=== PATIENT | male | born 1940 | race Caucasian/White ===

== ENCOUNTER 2019-08-20 12:27 | Inpatient (IN) | payer MEDICARE ==
[~2019-08-20] VITALS: Ht 185.4 cm; Wt 95.8 kg
[~2019-08-20 12:27] MED LIST: ANTIVERT 25MG25 MG PO; NAPROSYN; PRILOSEC 20MG20 MG PO; TRAMADOL50 MG PO; VYTORIN
[2019-08-20] MEDS ORDERED: TYLENOL 325MG325 MG PO ×2 (14:35→14:52)
[2019-08-20] MEDS ORDERED: ZOVIRAX400 MG PO (14:36)
[2019-08-20] MEDS ORDERED: ZYLOPRIM 300MG300 MG PO (14:37)
[2019-08-20] MEDS ORDERED: ENTOCORT EC3 MG PO ×2 (14:38→14:58)
[2019-08-20] MEDS ORDERED: ZYRTEC5 MG PO (14:38)
[2019-08-20] MEDS ORDERED: CARDIZEM 30MG T30 MG PO ×2 (14:39→14:55)
[2019-08-20] MEDS ORDERED: ARNUITY IH ×2 (14:40→14:58)
[2019-08-20] MEDS ORDERED: MOTRIN 400400 MG/TAB PO (14:41)
[2019-08-20] MEDS ORDERED: LEVAQUIN 5500 MG/TA1 PO (14:42)
[2019-08-20] MEDS ORDERED: ANTIVERT 25MG25 MG PO (14:44)
[2019-08-20] MEDS ORDERED: PRILOSEC10 MG/Pack PO (14:45)
[2019-08-20] MEDS ORDERED: ZOFRAN INJ4 MG/2 ML IV (14:46)
[2019-08-20] MEDS ORDERED: ZOFRAN8 MG PO ×2 (14:47)
[2019-08-20] MEDS ORDERED: CRESTOR 10MG10 MG PO (14:48)
[2019-08-20] MEDS ORDERED: VENCLEXTA100 MG PO ×2 (14:49→14:56)
[2019-08-20] MEDS ORDERED: ZOSYN 3.373.375 GM/V IV (14:50)
[2019-08-20] MEDS ORDERED: NORMAL SALINE F10 ML IV (14:53)
[2019-08-20] MEDS ORDERED: ATROVENT I0.2 MG/1 M IH (14:53)
[2019-08-20] MEDS ORDERED: PRILOSEC 20MG20 MG PO (14:54)
[2019-08-20] MEDS ORDERED: PROBIOTIC GOLD1 EACH PO (14:57)
[2019-08-20] MEDS ORDERED: VALTREX1 GM PO (14:57)
[2019-08-20] MEDS ORDERED: VANCO 1 GR1 GM/250 M IV (14:59)
[2019-08-20] MEDS ORDERED: LEVAQUIN 7750 MG/151 IV (15:00)
[2019-08-20 16:32] LABS: MEAN CELL VOLUME 106 fl (80.0-100.0); MEAN CORPUSCULAR HGB CONC 31 g/dl (33.0-37.0); PLATELET COUNT 287 K/mm3 (130-400); RED BLOOD COUNT 2.44 M/mm3 (4.20-5.60); REDCELL DISTRIBUTION WIDTH-CV 18.4 % (11.5-14.5)
[2019-08-20 16:37] LABS: HEMATOCRIT 25.9 % (42.0-52.0); HEMOGLOBIN 7.9 g/dl (13.5-18.0); MEAN CORPUSCULAR HEMOGLOBIN 32 pg (27.0-31.0)
[2019-08-20 16:38] VITALS: BP 115/57; PULSE 100; TEMP 98.8
--- NOTE | 2019-08-20 16:42 | NUR ---
PATIENT ARRIVED TO THE UNIT AT 1348 VIA EMS CART. HE WAS ABLE TO WALK FROM THE CART TO THE BED. i ASSISTED HIM TO THE BATHROOM WHERE HE PULLED THE STRING WHEN HE WAS FINISHED GOING. ONCE GETTING BACK IN BED HE RESTED FOR AWHILE. ADMISSION B ASSESSMENT DONE AND COMPLETED AND MEDICATIONS REVIEWED. PATIENT HAS HIS CELLPHONE WHERE HE TALKS TO HIS GRANDDAUGHTER. PATIENT IS A 1 ASSIST BECAUSE HE LOOSES HIS BALANCE OCCASIONALLY. PATIENT IS ON 2L OF O2 AT THIS TIME. UPDATED WBC IS 1.8. NKDA. PATIENT HAS A HISTORY OF AML AND RECEIVING CHEMOTHERAPY SO HE IS ON NEUTROPENIC PRECAUTIONS. LUNG SOUNDS ARE THE RIGHT DO NOT HAVE MUCH AIR FLOW THE LEFT SIDE. PATIENT IS HERE BECAUSE OF A CT DONE TODAY, IT WAS SLIGHT WORSENING ALVEOLAR SPACE OPACITIES WITHIN BOTH LUNGS AND MOSTLY IN RUL. PATIENT HAS BEEN RECEIVING IV ANTIBIOTICS AT THE PREVIOUS FACILITY. PATIENT IS ON A REGULAR DIET WITH Q4 VITALS AND TELEMETERY. PATIENT HAS 2+ PULSES BILATERALLY RADIAL AND PEDIALLY. NO COMPLAINTS AT THIS TIME.
[2019-08-20 16:45] LABS: ALBUMIN 2.7 gm/dL (3.5-5.0); BILIRUBIN,TOTAL 0.7 mg/dL (0.0-1.0); CALCIUM 7.7 mg/dL (8.4-10.2); CREATININE, serum 1.62 (0.66-1.25); POTASSIUM 3.6 mmol/L (3.4-5.0); TOTAL PROTEIN 5.5 gm/dL (6.4-8.2)
[2019-08-20 17:37] VITALS: BP 115/57; PULSE 100; TEMP 98.8
--- NOTE | 2019-08-20 18:02 | NUR ---
PATIENT IS RESTING IN BED AT THIS TIME. NO COMPLAINTS. NO SHORTNESS OF BREATH, NEASUA, VOMITING, OR DIZINESS AT THIS TIME. RESTING OFF AND ON. 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 CALL LIGHT WITHIN REACH AND WATER ON THE BEDSIDE TABLE. WAS ASSISTED TO THE BATHROOM A HALF HOUR AGO BY THE AIDE. PATIENT DENIES ANY NEEDS AT THIS TIME AND INSTRUCTED TO USE CALL LIGHT IF HE NEEDS ANYTHING.
[2019-08-20 20:26] LABS: BAND 12 % (0-10); LYMPHOCYTE 14 % (20.0-51.0); METAMYELOCYTE 4 % (0-0); MYELOCYTE 2 % (0-0); NEUTROPHILS 62 % (42.0-75.2)
[2019-08-20 20:28] LABS: PLATELET ESTIMATE NORMAL (NORMAL)
[2019-08-20 20:29] LABS: ANISOCYTOSIS 2+; TOXIC GRANULATION PRESENT
[2019-08-20 20:30] VITALS: BP 107/57; PULSE 98; TEMP 97.8
--- NOTE | 2019-08-20 20:30 | NUR ---
Shift assessment complete. Patient ambulated to BR with cane and assist x1. Tolerated well. States pain 8/10 in left shoulder (chronic). VIMAL Vega called for prn pain medication. Tylenol and norco ordered. Prn tylenol given per pt request. HR irregular upon auscultation, NSR with PAC's on tele. Murmur noted. Right hand IV flushed and infusing abx. Denies further needs at this time. Will continue to monitor.
[2019-08-21 03:02] VITALS: BP 112/52; PULSE 87; TEMP 98.1
--- NOTE | 2019-08-21 05:21 | NUR ---
Patient in bed, awake. Denies pain. IV flushed with NS and infusing abx. Denies further needs at this time. Will continue to monitor.
[2019-08-21] MEDS ORDERED: CARDIZEM 60MG T60 MG PO (05:27)
[2019-08-21] MEDS ORDERED: FLOVENT DI100 MCG/Ac IH (05:38)
[2019-08-21] MEDS ORDERED: ATROVENT I0.2 MG/1 M IH (05:47)
[2019-08-21] MEDS ORDERED: DIFLUCAN 4400 MG/200 IV (05:51)
--- NOTE | 2019-08-21 06:00 | NUR ---
Med list updated, information taken from [facility] records in paper chart. Notified VIMAL Vega. Will pass on to days that the med list needs to be addressed in rounds.
[2019-08-21 07:24] VITALS: BP 111/51; PULSE 106; TEMP 98.5
[2019-08-21 08:23] LABS: MEAN CELL VOLUME 105 fl (80.0-100.0); MEAN CORPUSCULAR HGB CONC 31 g/dl (33.0-37.0); MEAN PLATELET VOLUME 9.8 fl (7.4-10.4); PLATELET COUNT 279 K/mm3 (130-400); RED BLOOD COUNT 2.62 M/mm3 (4.20-5.60); REDCELL DISTRIBUTION WIDTH-CV 18.2 % (11.5-14.5)
[2019-08-21 08:27] LABS: HEMOGLOBIN 8.5 g/dl (13.5-18.0); MEAN CORPUSCULAR HEMOGLOBIN 32 pg (27.0-31.0)
[2019-08-21 08:28] LABS: HEMATOCRIT 27.5 % (42.0-52.0)
[2019-08-21 08:34] LABS: ALBUMIN 2.9 gm/dL (3.5-5.0); BILIRUBIN,TOTAL 0.7 mg/dL (0.0-1.0); CALCIUM 8.1 mg/dL (8.4-10.2); CREATININE, serum 1.55 (0.66-1.25); MAGNESIUM 2.1 mg/dL (1.6-2.3); POTASSIUM 3.8 mmol/L (3.4-5.0); TOTAL PROTEIN 5.8 gm/dL (6.4-8.2)
[2019-08-21 08:42] LABS: BAND 4 % (0-10); EOSINOPHIL 2 % (0-4); LYMPHOCYTE 16 % (20.0-51.0); METAMYELOCYTE 2 % (0-0); NEUTROPHILS 66 % (42.0-75.2); PLATELET ESTIMATE NORMAL (NORMAL)
[2019-08-21 09:15] LABS: PH 6 (5-8); SQUAMOUS EPITHELIAL None Seen /hpf; URINE APPEARANCE Clear; URINE BACTERIA None Seen /hpf; URINE BILIRUBIN Negative (NEGATIVE); URINE BLOOD 1+ (NEGATIVE); URINE COLOR Straw; URINE GLUCOSE Negative (NEGATIVE); URINE KETONE Negative (NEGATIVE); URINE LEUKOCYTE ESTERASE Negative (NEGATIVE); URINE NITRATE Negative (NEGATIVE); URINE PROTEIN(semi-quant) Negative (NEGATIVE); URINE RBC 0-2 /hpf; URINE UROBILINOGEN Negative (NEGATIVE); URINE WBC 0-2 /hpf
--- NOTE | 2019-08-21 09:35 | NUR ---
Assessment completed, alert/oriented, vital signs stable, denies pain or discomfort, reports he feels his breathing is doing better, he is requiring 2-3L. o2 to keep sats >90%, he does not wear O2 normally at home, lungs are diminished throughout but clear, heart RRR, hx of CLL and WBC is 2.2 this morning, he is sititng up eating breakfast and denies needs at this time
[2019-08-21 11:53] VITALS: BP 107/75; PULSE 100; TEMP 98.9
[2019-08-21 13:18] LABS: COLLECTION METHOD CLEAN CATCH
--- NOTE | 2019-08-21 13:49 | NUR ---
ANC is 1540 with 66% neutrophils and 4% neutrophil bands.
--- NOTE | 2019-08-21 14:00 | NUR ---
Per Dr Bonilla's office, pt has been recieving Vidaza with the last dose that they gave being on 07/29/2019. Chemotherapy precautions for this drug would be for 48 hours and no current chemotherapy precautions are needed.
--- NOTE | 2019-08-21 14:49 | NUR ---
FLOR met with the patient to discuss discharge plan. The patient lives alone in [place]. He states that his a year ago today. The patient's address and emergency contact were not up-to-date. FLOR notified admissions. The patient informed FLOR that his emergency contact is his granddaughter, Siena Montilla (ph#[phone]). He states that she lives in [place], [place]. The patient states that he has a son that lives in [place], but that he is not close to him. He reports independence with ADLs and has a cane and crutches. The patient's primary care provider is a Dr. Rodriguez at the [facility] and he receives his medications at the [facility] in [place]. He reports no difficulties obtaining his meds. The patient does not have advanced directives completed, but he was interested in obtaining a form for DPOA-HC. FLOR provided. He states that he has four children, but would prefer to designate his granddaughter. The patient states that he sometimes forgets when to take his meds. FLOR discussed home health services for medication assistance. The patient was interested in this. FLOR provided the patient with Medicare.gov's list of home health agencies that serve [place]. The patient chose [facility]. FLOR contacted and faxed a referral to Lidia at [facility]. FLOR awaiting screen. The patient is also currently requiring oxygen. FLOR to continue to monitor.
[2019-08-21 16:00] VITALS: BP 96/51; PULSE 102; TEMP 98
--- NOTE | 2019-08-21 20:00 | NUR ---
Received report from ISABELLE Loera. Assessment complete. Alert and oriented. Denies any pain or discomfort at this time. meds administered. Tele monitor in place, leads checked. On 2LO2, denies SOB. PICC to KIZZY intact, dressing CDI. Assisted pt to/from BR with use of cane. Needs met. Call light within reach.
[2019-08-21 20:02] VITALS: BP 87/43; BP 96/43; PULSE 92; TEMP 97.5
[2019-08-22] VITALS (7 sets, daily range): BP systolic 90–109; BP diastolic 50–62; PULSE 56–112; TEMP 97.4–98.3
[2019-08-22 06:10] LABS: MEAN CELL VOLUME 105 fl (80.0-100.0); MEAN CORPUSCULAR HGB CONC 30 g/dl (33.0-37.0); MEAN PLATELET VOLUME 10.1 fl (7.4-10.4); PLATELET COUNT 291 K/mm3 (130-400); REDCELL DISTRIBUTION WIDTH-CV 18.3 % (11.5-14.5)
[2019-08-22 06:20] LABS: HEMATOCRIT 26.3 % (42.0-52.0); MEAN CORPUSCULAR HEMOGLOBIN 32 pg (27.0-31.0)
[2019-08-22 06:21] LABS: CALCIUM 7.8 mg/dL (8.4-10.2); CREATININE, serum 2.01 (0.66-1.25); POTASSIUM 3.4 mmol/L (3.4-5.0)
--- NOTE | 2019-08-22 06:26 | NUR ---
Pt uneventul during this shift. made no complaints. Meds administered as ordered. Needs met. Call light within reach.
--- NOTE | 2019-08-22 06:38 | NUR ---
Report given to ISABELLE Loera.
[2019-08-22 07:15] LABS: BAND 9 % (0-10); EOSINOPHIL 2 % (0-4); LYMPHOCYTE 12 % (20.0-51.0); METAMYELOCYTE 2 % (0-0); MYELOCYTE 2 % (0-0); NEUTROPHILS 69 % (42.0-75.2); PLATELET ESTIMATE NORMAL (NORMAL)
--- NOTE | 2019-08-22 09:44 | NUR ---
Assessment completed, alert/oriented, vital signs stalbe / blood pressure are soft, tele called around 0815 and stated patient had went in to A.fib/ I ordered EKG and notifid hospitalist of this, patient is asymptomatic, lungs CTA/ diminished throughout, sitting up at bedside eating breakfast and denies other needs at this time
--- NOTE | 2019-08-22 15:37 | NUR ---
Patient with no stools recorded for 08-21-19 experienced one loose stool as of this time 08-22-19. Specimen sent for GI Panel testing with resulting positive C. difficile A/B toxin. ADditional testing per ALERE test kit with resulting antigen negative toxin negative results. Dr. Dumont notifed of results. Order received to place patient in isolation with no need to start antibiotic therapy. Gregory Hopper RN
--- NOTE | 2019-08-22 17:16 | NUR ---
Lidia, at [facility], reports that they can accept the patient for services. SW to inform the patient and will continue to follow.
[2019-08-22 20:14] LABS: PARTIAL THROMBOPLASTIN TIME 30.4 SECONDS (26.0-37.0)
[2019-08-23] VITALS (10 sets, daily range): BP systolic 96–141; BP diastolic 48–71; PULSE 102–125; TEMP 97.9–98.6
[2019-08-23 06:27] LABS: MEAN CELL VOLUME 106 fl (80.0-100.0); MEAN CORPUSCULAR HGB CONC 31 g/dl (33.0-37.0); MEAN PLATELET VOLUME 9.7 fl (7.4-10.4); PLATELET COUNT 271 K/mm3 (130-400); RED BLOOD COUNT 2.22 M/mm3 (4.20-5.60); REDCELL DISTRIBUTION WIDTH-CV 18.6 % (11.5-14.5)
[2019-08-23 06:30] LABS: HEMATOCRIT 23.5 % (42.0-52.0); HEMOGLOBIN 7.2 g/dl (13.5-18.0); MEAN CORPUSCULAR HEMOGLOBIN 32 pg (27.0-31.0)
[2019-08-23 06:40] LABS: INR 1.3 (0.8-3.0); PROTHROMBIN TIME 15.3 SECONDS (9.7-12.8)
[2019-08-23 06:46] LABS: ALBUMIN 2.4 gm/dL (3.5-5.0); BILIRUBIN,TOTAL 0.3 mg/dL (0.0-1.0); CALCIUM 7.5 mg/dL (8.4-10.2); CREATININE, serum 2.01 (0.66-1.25); POTASSIUM 3.1 mmol/L (3.4-5.0); TOTAL PROTEIN 5.1 gm/dL (6.4-8.2)
--- NOTE | 2019-08-23 06:54 | NUR ---
Report given to ISABELLE Lyle.
--- NOTE | 2019-08-23 07:15 | NUR ---
Report with ISABELLE Corado. Pt resting in bed, preparing for procedure. Call light in reach.
[2019-08-23 07:32] LABS: BAND 11 % (0-10); EOSINOPHIL 1 % (0-4); LYMPHOCYTE 9 % (20.0-51.0); METAMYELOCYTE 2 % (0-0); NEUTROPHILS 64 % (42.0-75.2); PLATELET ESTIMATE NORMAL (NORMAL)
--- NOTE | 2019-08-23 07:35 | NUR ---
Pt to endo for procedure via WC accompanied by ISABELLE Gaffney.
--- NOTE | 2019-08-23 09:15 | NUR ---
Pt back to room from procedure via cart, awake and alert, coughing regularly with clear, thick production. BP slightly low, increasing from endo per report. IVF's restarted to PICC line in right upper arm. No further needs reported. Call light in reach.
--- NOTE | 2019-08-23 09:46 | NUR ---
Heparin infusion restarted at 18.5 ml/hr per previous ordered rate. 1000 unit (10 ml) bolus from Heparin bag infused per orders following pt's procedure. Next HepXA ordered for 1530. Bolus and rate verified by ISABELLE Thompson.
--- NOTE | 2019-08-23 09:55 | NUR ---
O2 increased from 2.5 to 3.5 L/min via NC d/t sats in the upper 80's. Sats then increasing to 91%.
--- NOTE | 2019-08-23 15:46 | NUR ---
Pt having heart rate increase to 150's with activity per tele then resting rate is persistent in the 110-120 bpm. Doctor notified. Order received for one time dose of IVP Lopressor 5 mg if BP stable and heart rate persistent in the 110's.
--- NOTE | 2019-08-23 18:49 | NUR ---
Vancomycin Follow-up Pharmacy Note Current regimen: Vancomycin 1.5 gm IV 24h Vancomycin trough: 21.62 Adjustments: Will decrease Vancomycin to 1.25 gm IV q24h as trough slightly supratherapeutic for goal ~15-20. Pharmacy will continue to monitor and check a new Vancomycin trough prior to 3rd new dose on 08/25/19.
--- NOTE | 2019-08-23 20:05 | NUR ---
Report rcvd from ISABELLE Lyle and Becky RN. Pt laying in bed sleeping. Per report pt's bronchoscopy went well. Will continue to monitor pt. Call light and personal belongings within reach. no further concerns at this time.
--- NOTE | 2019-08-23 23:06 | NUR ---
PT AT BEDSIDE USING URINAL. STEADY ON FEET. NO OTHER CONCERNS. CALL LIGHT WITHIN REACH, BED ALARM ON.
[2019-08-24 01:16] VITALS: BP 101/61; PULSE 100; TEMP 98.7
[2019-08-24 05:13] VITALS: BP 105/48; PULSE 88; TEMP 98
[2019-08-24 06:27] LABS: BASO % 0.4 % (0.0-2.0); EOS % 0.6 % (0-4.0); GRAN # 3.7 (1.4-6.5); GRAN % 76.6 % (42.2-75.2); LYMPH # 0.2 (1.2-3.4); LYMPH % 4.5 % (20.0-51.0); MEAN CELL VOLUME 105 fl (80.0-100.0); MEAN CORPUSCULAR HGB CONC 30 g/dl (33.0-37.0); MEAN PLATELET VOLUME 9.6 fl (7.4-10.4); MONO # 0.7 (0.1-0.6); MONO % 13.8 % (1.7-9.3); PLATELET COUNT 314 K/mm3 (130-400); RED BLOOD COUNT 2.47 M/mm3 (4.20-5.60); REDCELL DISTRIBUTION WIDTH-CV 18.7 % (11.5-14.5)
[2019-08-24 06:36] LABS: HEMATOCRIT 25.8 % (42.0-52.0); HEMOGLOBIN 7.8 g/dl (13.5-18.0); MEAN CORPUSCULAR HEMOGLOBIN 32 pg (27.0-31.0)
[2019-08-24 06:44] LABS: CALCIUM 7.8 mg/dL (8.4-10.2); CREATININE, serum 2.14 (0.66-1.25); POTASSIUM 3.5 mmol/L (3.4-5.0)
[2019-08-24 08:00] VITALS: BP 108/69; PULSE 99; TEMP 97.6
--- NOTE | 2019-08-24 08:30 | NUR ---
Patient A&Ox4, denies pain and discomfort. Reporting diarrhea this am. Stool sample needed. VSS. 3L NC O2. Reported dyspnea with ambulation. PICC KIZZY CDI, fluids infusing. Contact precautions in place. No further needs expressed from patient. Call light within reach
[2019-08-24 11:29] VITALS: BP 106/47; PULSE 90; TEMP 97.9
--- NOTE | 2019-08-24 14:40 | NUR ---
RA SP02 85%. PLACED BACK ON 2 LPM 94%
[2019-08-24 16:00] VITALS: BP 114/63; PULSE 92; TEMP 99.6
--- NOTE | 2019-08-24 17:44 | NUR ---
Patient sitting up on the edge of bed. Had several loose watery stools. Cdiff sample negative. VSS. 2L NC O2. No reported SOB. IV CDI. Has had no appetite. Took a long nap and felt better after waking up. Patient assisted with a bed bath. Contact precautions in place. Heparin drip infusing. Patient at goal. No further needs expressed from patient. Call light within reach. BSC at bedside.
[2019-08-24 19:48] VITALS: BP 110/54; PULSE 88; TEMP 98.9
[2019-08-25 00:16] VITALS: BP 94/39; PULSE 83; TEMP 98.8
--- NOTE | 2019-08-25 04:20 | NUR ---
Pt has had an uneventful night. Tolerated being woken up for multiple different medication administrations that are every couple of hours around the clock. Pt is hopeful his children/grandchildren will be arriving today to visit him. Call light within reach, no further concerns at this time.
[2019-08-25 05:36] VITALS: BP 111/48; PULSE 78; TEMP 98
[2019-08-25 05:48] LABS: MEAN CELL VOLUME 104 fl (80.0-100.0); MEAN CORPUSCULAR HGB CONC 30 g/dl (33.0-37.0); PLATELET COUNT 307 K/mm3 (130-400); RED BLOOD COUNT 2.26 M/mm3 (4.20-5.60); REDCELL DISTRIBUTION WIDTH-CV 18.7 % (11.5-14.5)
[2019-08-25 05:52] LABS: HEMATOCRIT 23.6 % (42.0-52.0); HEMOGLOBIN 7.1 g/dl (13.5-18.0); MEAN CORPUSCULAR HEMOGLOBIN 31 pg (27.0-31.0)
[2019-08-25 06:12] LABS: ALBUMIN 2.5 gm/dL (3.5-5.0); BILIRUBIN,TOTAL 0.5 mg/dL (0.0-1.0); CALCIUM 7.4 mg/dL (8.4-10.2); CREATININE, serum 2.19 (0.66-1.25); MAGNESIUM 1.8 mg/dL (1.6-2.3); POTASSIUM 3.3 mmol/L (3.4-5.0); TOTAL PROTEIN 5.2 gm/dL (6.4-8.2)
--- NOTE | 2019-08-25 07:08 | NUR ---
Report given to ISABELLE Ryan. Pt's Lab's came back HepXa returned at 0.26, adustment will need to be made. No further concerns at this time.
[2019-08-25 08:00] LABS: ANISOCYTOSIS 1+; BAND 8 % (0-10); HYPOCHROMIA 2+; LYMPHOCYTE 8 % (20.0-51.0); MYELOCYTE 4 % (0-0); NEUTROPHILS 66 % (42.0-75.2); PLATELET ESTIMATE NORMAL (NORMAL); TOXIC GRANULATION PRESENT
[2019-08-25 08:30] VITALS: BP 95/51; PULSE 84; TEMP 97.8
--- NOTE | 2019-08-25 18:24 | NUR ---
PT RECEIVED FIRST DOSE OF IMMODIUM TODAY. STATED THAT IT HELPED AND REPORTED HAVING A DECREASE IN BM. STOOLS ARE SOLIDIFING AND NOT FREQUENT PER PT REPORT.
[2019-08-25 21:36] VITALS: BP 100/59; PULSE 86; TEMP 98
[2019-08-26 00:55] VITALS: BP 104/57; PULSE 88; TEMP 97.8
--- NOTE | 2019-08-26 03:05 | NUR ---
HepXa drawn. Will rcv results and adjust accordingly.
[2019-08-26 05:52] VITALS: BP 107/63; PULSE 81; TEMP 97.5
[2019-08-26 06:47] LABS: MEAN CELL VOLUME 103 fl (80.0-100.0); MEAN CORPUSCULAR HGB CONC 30 g/dl (33.0-37.0); MEAN PLATELET VOLUME 10.3 fl (7.4-10.4); PLATELET COUNT 354 K/mm3 (130-400); RED BLOOD COUNT 2.45 M/mm3 (4.20-5.60); REDCELL DISTRIBUTION WIDTH-CV 18.7 % (11.5-14.5)
[2019-08-26 06:58] LABS: HEMATOCRIT 25.3 % (42.0-52.0); HEMOGLOBIN 7.6 g/dl (13.5-18.0); MEAN CORPUSCULAR HEMOGLOBIN 31 pg (27.0-31.0)
[2019-08-26 07:23] LABS: CALCIUM 7.7 mg/dL (8.4-10.2); CREATININE, serum 2.51 (0.66-1.25); MAGNESIUM 1.9 mg/dL (1.6-2.3); POTASSIUM 3.1 mmol/L (3.4-5.0)
[2019-08-26 07:47] LABS: BAND 6 % (0-10); BASOPHIL 1 % (0-2); LYMPHOCYTE 21 % (20.0-51.0); METAMYELOCYTE 4 % (0-0); NEUTROPHILS 59 % (42.0-75.2); PLATELET ESTIMATE NORMAL (NORMAL)
[2019-08-26 08:27] VITALS: BP 84/43; PULSE 91; TEMP 98.6
[2019-08-26 11:41] VITALS: BP 111/52; PULSE 76; TEMP 97.5
--- NOTE | 2019-08-26 14:30 | NUR ---
Car Examiner was contacted by Lidia (ph#[phone]) at [facility] who inquired about discharge date. SW advised discharge date was not known at this time. SW to continue to follow.
[2019-08-26 16:28] VITALS: BP 107/61; PULSE 80; TEMP 98.8
--- NOTE | 2019-08-26 18:00 | NUR ---
PT HAD UNEVENTFUL DAY. REPORTED NO MORE STOOLS TODAY SINCE IMMODIUM. C/O NACK AND SHOULDER PAIN THAT HAS BEEN PERSISITANT, ADMINSTERED NORCO AND ICE PACK NEEDED WITH MINIMAL RELIEF. HEP GTT HAS REMIANED WTIHIN RANGE THIS SHIFT AND HASNT NEEDED ADJUSTED.
[2019-08-26 23:03] VITALS: BP 107/55; PULSE 90; TEMP 97.5
[2019-08-27] VITALS (7 sets, daily range): BP systolic 82–114; BP diastolic 43–60; PULSE 75–85; TEMP 97.3–98.2
--- NOTE | 2019-08-27 05:53 | NUR ---
Pt had an uneventful night. No episodes of diarrhea. Output was normal. No fevers. Pt is seeming to do a lot better. Is having some pain from the Tele box pulling on his gown, and creating a knot in his shoulder, this RN rubbed the shoulder out, however the pt needed medication for relief. Call light is within reach, No further concerns at this time. Will endorse all these things to the oncoming Day RN.
[2019-08-27 06:58] LABS: MEAN CELL VOLUME 104 fl (80.0-100.0); MEAN CORPUSCULAR HGB CONC 30 g/dl (33.0-37.0); MEAN PLATELET VOLUME 10.4 fl (7.4-10.4); PLATELET COUNT 381 K/mm3 (130-400); RED BLOOD COUNT 2.35 M/mm3 (4.20-5.60)
[2019-08-27 07:03] LABS: HEMATOCRIT 24.4 % (42.0-52.0); HEMOGLOBIN 7.4 g/dl (13.5-18.0); MEAN CORPUSCULAR HEMOGLOBIN 31 pg (27.0-31.0)
[2019-08-27 07:15] LABS: CALCIUM 7.6 mg/dL (8.4-10.2); CREATININE, serum 2.67 (0.66-1.25); MAGNESIUM 1.7 mg/dL (1.6-2.3); POTASSIUM 3.1 mmol/L (3.4-5.0)
[2019-08-27 07:46] LABS: BAND 9 % (0-10); LYMPHOCYTE 16 % (20.0-51.0); METAMYELOCYTE 4 % (0-0); MYELOCYTE 1 % (0-0); NEUTROPHILS 64 % (42.0-75.2); OVALOCYTES 1+; PLATELET ESTIMATE NORMAL (NORMAL); TARGET CELLS 1+
[2019-08-27 07:47] LABS: TEAR DROP CELLS 1+
--- NOTE | 2019-08-27 07:51 | NUR ---
Patient resting in bed at this time. He is alert and oriented x 3. Verbalizes he is having pain in his left shoulder and right wrist. 9/10 on pain scale. Patient skin w/d. Color pale pink. No noted shortness of air this AM. Lungs diminshed in bases; resp even/unlabored. Patient verbalizes non-productive cough. 02 @ 2L/NC. HR strong/regular. Abd soft with noted bowel sounds x 4 quads. PPP. No pedal edema. Patient's call light within reach and clutter cleaned out of room. Patient has no other needs at this time.
--- NOTE | 2019-08-27 11:21 | NUR ---
Patient requested to be up to ambulate this AM. Patient was only able to ambulate to the door when he started to c/o that his knees were too weak. Taken back to bed. Patient continues to c/o right wrist and left shoulder pain; rating 10/10. Given Narco at this time. Patient reports no other needs
--- NOTE | 2019-08-27 12:32 | NUR ---
Per request of MD; blood pressure checked manually. 102/60 in left arm. Reported to Dr. Alexander
--- NOTE | 2019-08-27 17:45 | NUR ---
While doing 1600 pain assessment; patient continues to c/o significant right wrist pain. Upon checking wrist again it is noted that wrist area slighlty reddened; a little warmer than surrounding skin; with slight swelling. Patient continues to have strong radial pulse and capillary refill. Not present this AM during MD and this nurses assessment. Dr. Alexander called to make aware.
--- NOTE | 2019-08-27 19:00 | NUR ---
Report rcvd from ISABELLE Fraser. Pt has reportedly had an "off" day. He began c/o pain in his shoulder and pain in his Right hand. Tonight during bedside shift report it was evident that his Right hand has some reddening, as well as swelling and hot to touch. Pt states it is very painful to move and touch. Pt requests a "hacksaw" to cut off his arm it hurts so bad. Pt is verbally expressing his pain and talking with this RN. Pt states there is no other problems with him right now. Water filled, call light within reach, assessment completed. No further concerns at this time.
[2019-08-28] VITALS (7 sets, daily range): BP systolic 97–118; BP diastolic 46–55; PULSE 67–90; TEMP 97.5–99.2
--- NOTE | 2019-08-28 00:10 | NUR ---
Pt has c/o pain in his Right Hand. It still remains reddened, swollen and hot to touch. Pain management required at this time.
[2019-08-28 06:13] LABS: MEAN CELL VOLUME 103 fl (80.0-100.0); MEAN CORPUSCULAR HGB CONC 30 g/dl (33.0-37.0); MEAN PLATELET VOLUME 10.2 fl (7.4-10.4); PLATELET COUNT 402 K/mm3 (130-400); RED BLOOD COUNT 2.39 M/mm3 (4.20-5.60)
[2019-08-28 06:15] LABS: HEMATOCRIT 24.7 % (42.0-52.0); HEMOGLOBIN 7.5 g/dl (13.5-18.0); MEAN CORPUSCULAR HEMOGLOBIN 31 pg (27.0-31.0)
[2019-08-28 06:31] LABS: CALCIUM 7.5 mg/dL (8.4-10.2); CREATININE, serum 2.44 (0.66-1.25); POTASSIUM 3.6 mmol/L (3.4-5.0)
[2019-08-28 07:19] LABS: BAND 8 % (0-10); BASOPHIL 1 % (0-2); HYPOCHROMIA 1+; LYMPHOCYTE 16 % (20.0-51.0); METAMYELOCYTE 4 % (0-0); NEUTROPHILS 64 % (42.0-75.2)
[2019-08-28 07:20] LABS: PLATELET ESTIMATE NORMAL (NORMAL)
--- NOTE | 2019-08-28 09:50 | NUR ---
PICC intact right upper arm. With sterile technique right upper arm PICC dressing change done with insertion site cleansed with ChloraPrep 1, chlorhexidine impregnated disc applied, skin prep, StatLock, and Tegaderm applied. No signs or symptoms of IV complications noted. No concerns voiced. Arm wrapped with Misael to protect catheter.
--- NOTE | 2019-08-28 09:52 | NUR ---
PT UP TO RECLINER FOR BREAKFAST. REPORTING RIGHT HAND/WRIST PAINFULL, REDEND AREA FROM WRIST INTO HAND NOTED. C/O LEFT SHOULDER POINT TENDERNESS CONTINUING WITH K-PAD WHICH WAS INITIATED ON OTHER SHIFT. X-RAY NOTIFIED OF NEW ORDERS.
--- NOTE | 2019-08-28 16:54 | NUR ---
REPORT TO SARAH WALTON.
--- NOTE | 2019-08-28 16:58 | NUR ---
Customs House Broker met with patient to revisit discharge plan as PT is now recommending post acute rehab. Patient states he does not want to go to the SNF in [facility]. FLOR provided list of SNFs surrounding [place]. SW also discussed swing bed and inpatient rehab options. SW presented and explained Patient Choice Form to patient. Patient selected [facility] and did not want to provide second preference at this time. Patient states he is unsure about IPR and is not really interested in SNFs outside of [place]. FLOR contacted Mariam at [facility] and faxed referral. FLOR contacted ISABELLE Murphy at Dr. Bonilla's office to discuss treatment plan. Katherine advised patient will see Dr. Bonilla on 09/10/19 and is scheduled to resume chemo on 09/12/19. FLOR provided this update to Mariam. FLOR provided update to Sarahi at [facility] as Crystal was not available. SW to continue to follow.
--- NOTE | 2019-08-28 17:51 | NUR ---
Report received from ISABELLE Villalobos. PT returned to floor from Radiology earlier. Resting in bed, wrist brace applied to R wrist, pt states it makes her feel better. Denies needs, will give bedside shift report to nightshift nurse who will resume care.
--- NOTE | 2019-08-28 19:10 | NUR ---
Received report from Tereza. Patient is awake, lying on bed. Patient has PICC on right upper arm. On O2 at 2lpm via NC. With bandaid on his right wrist. Patient denies any pain and says his right wrist is tolerable right now. Call light within reach.
[2019-08-29 04:30] VITALS: BP 98/46; PULSE 68; TEMP 98
--- NOTE | 2019-08-29 05:44 | NUR ---
Patient requested to have the KPad on again and have it applied on his back. Patient states he has tolerable pain for his right wrist and denies the need to take pain meds. Will endorse to day shift nurse.
[2019-08-29 06:49] LABS: MEAN CELL VOLUME 104 fl (80.0-100.0); MEAN CORPUSCULAR HGB CONC 30 g/dl (33.0-37.0); MEAN PLATELET VOLUME 10.1 fl (7.4-10.4); PLATELET COUNT 435 K/mm3 (130-400); RED BLOOD COUNT 2.43 M/mm3 (4.20-5.60)
--- NOTE | 2019-08-29 07:00 | NUR ---
Reported on to primary RNRuby.
[2019-08-29 07:11] LABS: CALCIUM 7.8 mg/dL (8.4-10.2); CREATININE, serum 2.25 (0.66-1.25); POTASSIUM 3.8 mmol/L (3.4-5.0)
[2019-08-29 07:18] LABS: HEMATOCRIT 25.2 % (42.0-52.0); HEMOGLOBIN 7.6 g/dl (13.5-18.0); MEAN CORPUSCULAR HEMOGLOBIN 31 pg (27.0-31.0)
--- NOTE | 2019-08-29 07:40 | NUR ---
Assessment completed. Pt. on O2 @ 2 L per NC. Pt. reported 5/10 pain, refused need for pain medication. Bandaid to R wrist CDI. PICC dressing CDI. BP 98/67. Reported to primary nurse. Pt repositioned. Bed alarm on. Call light in reach. No further complaints at this time.
[2019-08-29 08:14] VITALS: BP 98/67; PULSE 73; TEMP 98
[2019-08-29 08:28] LABS: BAND 5 % (0-10); BASOPHIL 1 % (0-2); LYMPHOCYTE 3 % (20.0-51.0); MYELOCYTE 2 % (0-0); NEUTROPHILS 79 % (42.0-75.2)
[2019-08-29 08:29] LABS: MICROCYTOSIS 2+; PLATELET ESTIMATE INCREASED (NORMAL)
[2019-08-29 08:30] LABS: ANISOCYTOSIS 2+
[2019-08-29 08:31] LABS: POLYCHROMASIA 1+
[2019-08-29 08:32] LABS: HYPOCHROMIA 3+
[2019-08-29 08:33] LABS: STOMATOCYTE 1+
--- NOTE | 2019-08-29 10:16 | NUR ---
Assessment complete. Patient sitting up at bedside reading magazine. Reported pain at a 5 to student nurse but refused pain medication. BLE edema is minimal but left leg is slightly worse. Patient claims he is comfortable and has no further needs. Fall precautions are in place. Call light is within reach.
[2019-08-29] MEDS ORDERED: CORDARONE200 MG/TAB PO (10:40)
[2019-08-29] MEDS ORDERED: ASPIRIN E.C. 8181 MG PO (10:40)
[2019-08-29] MEDS ORDERED: LASIX 20MG TABL20 MG PO (10:40)
[2019-08-29 12:28] VITALS: BP 107/52; PULSE 70; TEMP 97.5
--- NOTE | 2019-08-29 13:13 | NUR ---
Reported of to primary RNRuby.
--- NOTE | 2019-08-29 13:43 | NUR ---
Primary nurse was assisted with [id number] patient care by [employer] [facility] Sandra Elizondo and [employer] instructor Angela Meng RN-.
--- NOTE | 2019-08-29 15:10 | NUR ---
Energy Audit Advisor attended clinical rounds with the team and patient could be ready to discharge today. FLOR contacted Mariam at [facility] who advised they would not be able to do an admission today however could possibly admit tomorrow. Mariam advised she will communicate with accepting physician. FLOR to continue to follow. FLOR met with patient to provide update. Patient reports his friend at the [facility] can provide transportation.
[2019-08-29 15:54] VITALS: BP 102/48; PULSE 77; TEMP 97.8
--- NOTE | 2019-08-29 18:29 | NUR ---
Patient had an uneventful day. He took his meds and ate well. No complaints of wrist pain when asked. Stated sitting in the chair was hurting his bottom so he prefers the bed. PICC site is CD&I. Per FLOR notes he is to go to [facility] tomorrow as they could not admit him today.
--- NOTE | 2019-08-29 19:20 | NUR ---
Patient assessed at this time. Alert and oriented x 4, and able to make needs known. Denies having pain and discomort at this time. Double lumen PICC to right upper arm. Dressing CDI. Denies SOB and dyspnea. LS CTA. Respirations even and unlabored. On oxygen at 2 L/min via NC. HRR. Telemetry in place: sinus. Capillary refill less than 3 seconds. Non-tenting skin turgor. BSAx4. Abdomen soft and non-tender. 1+ edema BLE. Voices no questions, needs, or concerns at this time. Resting in bed with call light within reach.
[2019-08-29 19:33] VITALS: BP 104/51; PULSE 71; TEMP 97.7
[2019-08-29 23:13] VITALS: BP 110/56; PULSE 80; TEMP 97.7
[2019-08-30 03:35] VITALS: BP 117/67; PULSE 69; TEMP 97.6
--- NOTE | 2019-08-30 05:54 | NUR ---
Patient has been resting in bed most of the night. Has denied having pain and discomfort. Has been calling for assistance with going to the bathroom. Voices no questions, needs, or concerns at this time. Call light is within reach.
[2019-08-30 06:51] LABS: MEAN CELL VOLUME 104 fl (80.0-100.0); MEAN CORPUSCULAR HGB CONC 30 g/dl (33.0-37.0); MEAN PLATELET VOLUME 10.3 fl (7.4-10.4); PLATELET COUNT 492 K/mm3 (130-400); REDCELL DISTRIBUTION WIDTH-CV 19.2 % (11.5-14.5)
[2019-08-30 06:57] LABS: HEMOGLOBIN 7.9 g/dl (13.5-18.0); MEAN CORPUSCULAR HEMOGLOBIN 32 pg (27.0-31.0)
[2019-08-30 07:00] LABS: CALCIUM 8.2 mg/dL (8.4-10.2); CREATININE, serum 2.02 (0.66-1.25); POTASSIUM 3.9 mmol/L (3.4-5.0)
--- NOTE | 2019-08-30 07:34 | NUR ---
Assessment completed. Pt. remains on 2 L per NC. Pt reported 0/10 pain. 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 Pt. in bed with call light in reach. No further complaints at this time.
[2019-08-30 08:07] VITALS: BP 115/42; PULSE 72; TEMP 98.3
[2019-08-30 08:42] LABS: PATHOLOGY DIFF REVIEW OK
[2019-08-30 08:52] LABS: BAND 2 % (0-10); LYMPHOCYTE 5 % (20.0-51.0); METAMYELOCYTE 4 % (0-0); MYELOCYTE 2 % (0-0); NEUTROPHILS 77 % (42.0-75.2); OVALOCYTES 1+; PLATELET ESTIMATE NORMAL (NORMAL)
[2019-08-30 08:53] LABS: TARGET CELLS 1+; TEAR DROP CELLS 1+
[2019-08-30] MEDS ORDERED: CORDARONE200 MG/TAB PO (10:27)
[2019-08-30] MEDS ORDERED: PREDNISONE10 MG PO ×2 (10:27→10:28)
[2019-08-30 10:45] VITALS: BP 115/42; PULSE 72; TEMP 98.3
--- NOTE | 2019-08-30 11:15 | NUR ---
Laboratory Mechanic Helper spoke with [facility] who advised they could accept patient today. Accepting physician is Dr. Romeo Farnsworth (ph#[phone]) and SW provided report number to Hospitalist. FLOR met with patient who has arranged for a friend to pick him up later this morning. FLOR presented and explained IM form to patient who verbalized understanding and provided signature. FLOR placed form on chart and provided copy to patient. FLOR contacted Mariam and faxed discharge orders. No additional needs at this time.
--- NOTE | 2019-08-30 11:21 | NUR ---
Patient transferring to [facility], I have called and given report to receiving nurse Adia, Patient is transferring by private vehicle with a friend, PICC and tele removed prior to discharge, o2 sat 94% on room air prior to discharge/ patient had been on o2 while in our hospital but does not have home oxygen normally
--- NOTE | 2019-08-30 11:26 | NUR ---
Primary nurse was assisted with [phone] patient care by [employer] [facility] Sandra Elizondo and [employer] instructor Angela Meng RN-.
== END 2019-08-30 11:23 | disposition swing bed (61) | DRG 193 ==
LOC: MEDICAL 12:27
PROVIDERS: Internal Medicine Interventional Cardiology; Internal Medicine Pulmonary Disease; Nurse Practitioner Family; Physician Assistant; ADMIT Student in an Organized Health Care Education/Training Program
PROC: 0B948ZZ Drainage of Right Upper Lobe Bronchus, Via Natural or Artificial Opening Endoscopic (ICD-10-PCS; 2019-08-23)
PROC: 0B958ZZ Drainage of Right Middle Lobe Bronchus, Via Natural or Artificial Opening Endoscopic (ICD-10-PCS; 2019-08-23)
PROC: 0BDC8ZX Extraction of Right Upper Lung Lobe, Via Natural or Artificial Opening Endoscopic, Diagnostic (ICD-10-PCS; 2019-08-23)
PROC: 0B968ZZ Drainage of Right Lower Lobe Bronchus, Via Natural or Artificial Opening Endoscopic (ICD-10-PCS; principal; 2019-08-23 08:00)
DX: J18.9 Pneumonia, unspecified organism (principal); J96.01 Acute respiratory failure with hypoxia; C92.00 Acute myeloblastic leukemia, not having achieved remission; N17.9 Acute kidney failure, unspecified; Z96.653 Presence of artificial knee joint, bilateral; E78.5 Hyperlipidemia, unspecified; R19.7 Diarrhea, unspecified; E87.6 Hypokalemia; I48.91 Unspecified atrial fibrillation; I35.0 Nonrheumatic aortic (valve) stenosis; I12.9 Hypertensive chronic kidney disease with stage 1 through stage 4 chronic kidney disease, or unspecified chronic kidney disease; N18.3 Chronic kidney disease, stage 3 (moderate); I49.9 Cardiac arrhythmia, unspecified; M25.511 Pain in right shoulder; M25.531 Pain in right wrist; K21.9 Gastro-esophageal reflux disease without esophagitis; I95.9 Hypotension, unspecified; D63.0 Anemia in neoplastic disease; Z87.891 Personal history of nicotine dependence; Z90.49 Acquired absence of other specified parts of digestive tract
CPT/HCPCS: 99223-AI; 99231-AI; 99232-AI; 99233-AI; 99239; C1751; J0456; J1644; J1940; J2543; J2704; J3370; J3480; J7030; J7050; J7512